=== PATIENT | female | born 1980 | race African-American/Black ===

== ENCOUNTER 2017-11-16 17:40 | Emergency (ER) | payer MEDICAID ==
[~2017-11-16] VITALS: Ht 165.1 cm; Wt 68.0 kg
[2017-11-16 21:00] LABS: CLARITY URINE CLEAR (CLEAR); COLOR URINE YELLOW (YELLOW); KETONES URINE NEGATIVE (NEGATIVE); LEUKOCYTE ESTERASE URINE NEGATIVE (NEGATIVE); NITRITE URINE NEGATIVE (NEGATIVE); OCCULT BLOOD URINE NEGATIVE (NEGATIVE); PROTEIN URINE NEGATIVE (NEGATIVE); UROBILINOGEN URINE 0.2 E.U./dL (0.2-1.0)
[2017-11-16] MEDS ORDERED: CYCLOBENZAPRINE 10MG TABLET PO ONE (21:00)
[2017-11-16] MEDS ORDERED: KETOROLAC 60MG/2ML VIAL IM ONE (21:00)
[2017-11-17] MEDS ORDERED: LIDOCAINE 5% PATCH TOP STA (00:01)
[2017-11-17] MEDS ORDERED: ACETAMINOPHEN 500MG TABLET PO ONE (00:15)
[2017-11-17] MEDS ORDERED: MORPHINE SULFATE 10 MG/ML CPJ IM ONE (00:45)
[2017-11-17 01:10] VITALS: BP 119/72
== END 2017-11-17 01:11 | disposition home or self-care (01) ==
LOC: ER 21:16
DX: M54.40 Lumbago with sciatica, unspecified side (principal)
CPT/HCPCS: 81003; 81025; 96372; 99284; J1885; J2270